=== PATIENT | male | born 1955 | race Caucasian/White ===

== ENCOUNTER 2016-07-27 14:14 | Outpatient (CLI) | payer BC | END 2016-07-27 14:15 | disposition home or self-care (01) | DX: I35.0 Nonrheumatic aortic (valve) stenosis (principal); I10 Essential (primary) hypertension ==

== ENCOUNTER 2017-10-09 09:14 | Outpatient (CLI) | payer BC ==
[2017-10-09 17:56] LABS: BILIRUBIN,URINE NEGATIVE (NEGATIVE); GLUCOSE, URINE (UA) NEGATIVE (NEGATIVE); KETONES,URINE (UA) NEGATIVE (NEGATIVE); LEUKOCYTE ESTERASE, URINE NEGATIVE (NEGATIVE); NITRITE,URINE NEGATIVE (NEGATIVE); OCCULT BLOOD,URINE NEGATIVE (NEGATIVE); PH,URINE 5.5 PH (5.0-7.5); PROTEIN,URINE NEGATIVE (NEGATIVE); UROBILINOGEN,URINE 0.2 (NORMAL) E.U./dL (NORMAL)
[2017-10-09 17:57] LABS: CLARITY,URINE CLEAR (CLEAR)
[2017-10-09 18:10] LABS: BASOPHILS # (AUTO) 0.2 10^3/uL (0.0-0.1); BASOPHILS % (AUTO) 2.2 %; EOSINOPHILS # (AUTO) 0.4 10^3/uL (0.0-0.7); EOSINOPHILS % (AUTO) 4.8 %; HGB - HEMOGLOBIN 15.3 g/dL (14.0-18.0); LYMPHOCYTES # (AUTO) 1.4 10^3/uL (1.5-3.5); LYMPHOCYTES % (AUTO) 18.4 %; MEAN CORPUSCULAR HEMOGLOBIN 29.5 pg (27.0-31.0); MEAN CORPUSCULAR HGB CONC 33.5 g/dL (32.0-36.0); MEAN CORPUSCULAR VOLUME 88.1 fL (80.0-94.0); MEAN PLATELET VOLUME 7.4 fL (7.4-11.4); MONOCYTES # (AUTO) 0.5 10^3/uL (0.0-1.0); MONOCYTES % (AUTO) 6.1 %; NEUTROPHILS # (AUTO) 5.2 10^3/uL (1.5-6.6); NEUTROPHILS % (AUTO) 68.5 %; PLT - PLATELET COUNT 246 10^3/uL (130-450); RED BLOOD COUNT 5.19 10^6/uL (4.70-6.10); RED CELL DISTRIBUTION WIDTH 13.6 % (12.0-15.0); WHITE BLOOD COUNT 7.6 x10^3/uL (4.8-10.8)
[2017-10-09 18:29] LABS: ALBUMIN 3.9 g/dL (3.2-5.5); ALBUMIN/GLOBULIN RATIO 1.6 (1.0-2.2); ALKALINE PHOSPHATASE 64 IU/L (42-121); ALT ALANINE AMINOTRANSFERASE 25 IU/L (10-60); AST ASPARTATE AMINOTRANSFERASE 22 IU/L (10-42); BILIRUBIN,TOTAL 0.7 mg/dL (0.2-1.0); BUN - BLOOD UREA NITROGEN 17 mg/dL (6-20); CALCIUM 8.9 mg/dL (8.5-10.3); CARBON DIOXIDE - CO2 28 mmol/L (21-32); CHLORIDE 105 mmol/L (101-111); CHOLESTEROL 152 mg/dL; CREATININE 0.9 mg/dL (0.6-1.2); GFR - MDRD 85 (>89); GLUCOSE 111 mg/dL (70-100); HDL CHOLESTEROL 38 mg/dL; LDL CHOLESTEROL,CALCULATED 91 mg/dL; LDL/HDL RATIO 2.4 (<3.6); SODIUM 138 mmol/L (135-145); TOTAL PROTEIN 6.3 g/dL (6.7-8.2); VLDL CHOLESTEROL 23 mg/dL
[2017-10-09 18:33] LABS: HB2 TOTAL 17.4 g/dL; HEMOGLOBIN A1C 0.72 g/dL; HEMOGLOBIN A1C % 5.9 % (4.6-6.2)
[2017-10-09 18:35] LABS: BACTERIA,URINE None Seen /HPF (None Seen); RBC,URINE 3 /HPF (0-5); SQUAMOUS EPITHELIAL CELL,UR RARE Squamous (<= Few)
== END 2017-10-09 09:15 | disposition home or self-care (01) ==
LOC: LAB.F 09:14
PROVIDERS: ATTEND Family Medicine
DX: I25.10 Atherosclerotic heart disease of native coronary artery without angina pectoris (principal); I35.0 Nonrheumatic aortic (valve) stenosis; R73.9 Hyperglycemia, unspecified; I10 Essential (primary) hypertension; E78.5 Hyperlipidemia, unspecified; Z12.5 Encounter for screening for malignant neoplasm of prostate
CPT/HCPCS: 36415; 80053; 80061; 81001; 83036; 83721; 84153; 85025

== ENCOUNTER 2017-10-13 16:54 | Emergency (ER) | payer BC ==
[2017-10-13] MEDS ORDERED: BUPIVACAINE 0.5% PF 30 ML VIAL SUBQ STA (17:00)
[2017-10-13] MEDS ORDERED: TETANUS/DIPHTHERIA/PERTUSSIS 0.5 ML SYRINGE IM ONE (17:00)
[2017-10-13 17:01] VITALS: BP 148/75
[2017-10-13] MEDS ORDERED: BUPIVACAINE 0.25% PF 30 ML VIAL SUBQ STA (17:04)
--- NOTE | 2017-10-13 17:04 | ED Physician Documentation ---
PD HPI UPPER EXT INJURY - Stated complaint Stated Complaint: RT INDEX SMASHED - Chief complaint Chief Complaint: Wound - History obtained from History obtained from: Patient - History of Present Illness Location: Right (Left-handed gentleman with unknown tetanus caught his finger under a heavy piece of metal while working at home just prior to arrival and injured the right index finger with moderate to severe pain. No other injuries. ) Review of Systems Ten Systems: 10 systems reviewed and negative Constitutional: reports: Reviewed and negative Cardiac: reports: Reviewed and negative Respiratory: reports: Reviewed and negative PD PAST MEDICAL HISTORY - Past Medical History Past Medical History: Yes Cardiovascular: Valve disorder (Valve replacement) - Present Medications Home Medications: Ambulatory Orders Medication Instructions Recorded Confirmed Amlodipine/Valsartan/Hcthiazid 1 tab PO DAILY 10/13/17 10/13/17 [Eodgv-Qpgmu-Vlej 5-160-25 mg] Aspirin 1 tab PO DAILY 10/13/17 10/13/17 Atorvastatin [Lipitor] 1 tab PO DAILY 10/13/17 10/13/17 HYDROcod/ACETAM 5/325 [[place] 5/325] 1 tab PO Q6HR PRN 10/13/17 10/13/17 - Allergies Allergies/Adverse Reactions: Allergies Allergy/AdvReac Type Severity Reaction Status Date / Time No Known Drug Allergies Allergy Verified 10/13/17 17:01 - Social History Does the pt smoke?: Yes Does the pt drink ETOH?: No Does the pt have substance abuse?: No - Family History Family history: reports: Non contributory PD ED PE NORMAL - Vitals Vital signs reviewed: Yes - General General: Alert and oriented X 3, No acute distress - HEENT HEENT: PERRL, EOMI - Neck Neck: Supple, no meningeal sign, No bony TTP - Cardiac Cardiac: RRR, No murmur - Respiratory Respiratory: No respiratory distress, Clear bilaterally - Abdomen Abdomen: Normal bowel sounds, Soft, Non tender - Back Back: No CVA TTP, No spinal TTP - Derm Derm: Normal color, Warm and dry - Extremities Extremities: Other (Big injury on the radial side of the R 2nd finger at the level of the mid phalanx. Good sensation at the tip. The injury itself is kind of stellate deep laceration, potentially with some tissue loss.) - Neuro Neuro: Alert and oriented X 3, Normal speech - Psych Psych: Normal mood, Normal affect Results - Vitals Vitals: Vital Signs - 24 hr 10/13/17 16:57 Temperature 36 C L Heart Rate 74 Respiratory 20 Rate Blood Pressure 148/75 H O2 Saturation 97 Oxygen O2 Source Room air - Rads (name of study) R 2nd finger XR Radiology: EMP read contemporaneously (IMPRESSION: Severely comminution, displaced and angulated fracture of the index finger middle phalanx, with intra- articular involvement at the DIP. Small fracture of the base of the distal phalanx is not excluded. There is associated soft tissue deformity and defect compatible with an open fracture.) Procedures - Regional nerve block Nerve block site: Digital - note digit(s) (2nd right) Nerve block anesthesia: Marcaine 0.5% Nerve block aftercare: Patient tolerated well PD MEDICAL DECISION MAKING - ED course ED course: I spoke with the on-call surgeon, Dr. Gonzalez, who recommended consulting a hand surgeon after checking his tendon function. Noting that I did not check his tendon function on initial arrival because he was not numbed up yet. On reexamination after a digital block with 0.5% bupivacaine he did have evidence of both flexor and Extensor tendon injuries. Case was discussed by phone with Dr. Roel Stanley, hand surgeon in [place] he will see him in the ER and recommends an ER to ER transfer and will likely take him to the OR. He has been n.p.o. for solids since 8 AM and liquid since 11 AM. He was accepted by Dr. Pompa in the ER there, cobras were completed. Patient wants to drive to his house and then have his taken down [place] because his dogs in the car. We will give him 2 g of Ancef IV before that and he understands he needs to stay n.p.o. Departure - Departure Disposition: 02 Transfer Acute Care Hosp Clinical Impression: Laceration Open fracture of phalanx of digit of hand Qualifiers: Encounter type: initial encounter Qualified Code(s): S62.609B - Fracture of unspecified phalanx of unspecified finger, initial encounter for open fracture Injury of flexor tendon of hand Qualifiers: Encounter type: initial encounter Laterality: right Qualified Code(s): S66.801A - Unspecified injury of other specified muscles, fascia and tendons at wrist and hand level, right hand, initial encounter Condition: Stable
[2017-10-13] MEDS ORDERED: ceFAZolin 1 GM VIAL IVP STA (17:25)
--- NOTE | 2017-10-13 17:48 | XRAY Report ---
EXAM: RIGHT SECOND DIGIT RADIOGRAPHY EXAM DATE: 10/13/2017 05:22 PM. CLINICAL HISTORY: Index inj. crush injury today. COMPARISON: None. TECHNIQUE: 3 views. FINDINGS: Bones: Comminuted, displaced and angulated fracture of the index finger middle phalanx extending from the proximal metaphyseal region with severe comminution of the mid to distal aspect, with intra-manny cular involvement. The distal phalanx proximally positioned. Fracture involvement of the base of the distal phalanx is not definitely excluded. Joints: Extensive fracture involvement of the articular aspect of the distal portion middle phalanx w ith angulated/displaced distal phalanx. Soft Tissues: There is associated soft tissue swelling, distortion and defect compatible with an open fracture. IMPRESSION: Severely comminution, displaced and angulated fracture of the index finger middle phalanx , with intra-articular involvement at the DIP. Small fracture of the base of the distal phalanx is no t excluded. There is associated soft tissue deformity and defect compatible with an open fracture. [facility] Referring Provider Line: [phone] SITE ID: [id number]
== END 2017-10-13 18:03 | disposition short-term general hospital (02) ==
LOC: ED 16:54
DX: S62.620B Displaced fracture of middle phalanx of right index finger, initial encounter for open fracture (principal); S56.40 Unspecified injury of extensor muscle, fascia and tendon of other and unspecified finger at forearm level; S56.101A Unspecified injury of flexor muscle, fascia and tendon of right index finger at forearm level, initial encounter; W23.0XXA Caught, crushed, jammed, or pinched between moving objects, initial encounter; Y93.89 Activity, other specified; Y92.009 Unspecified place in unspecified non-institutional (private) residence as the place of occurrence of the external cause; F17.200 Nicotine dependence, unspecified, uncomplicated
CPT/HCPCS: 73140; 90471; 96374; 99283

== ENCOUNTER 2018-09-16 07:39 | Outpatient (CLI) | payer BC ==
[2018-09-16 11:37] LABS: CHOL/HDL RATIO 3.4 (<5.0); CHOLESTEROL 126 mg/dL; HDL CHOLESTEROL 37 mg/dL; LDL CHOLESTEROL,CALCULATED 70 mg/dL; LDL/HDL RATIO 1.9 (<3.6); VLDL CHOLESTEROL 19 mg/dL
[2018-09-16 11:40] LABS: HB2 TOTAL 16.9 g/dL; HEMOGLOBIN A1C 0.68 g/dL; HEMOGLOBIN A1C % 5.8 % (4.6-6.2)
== END 2018-09-16 07:40 | disposition home or self-care (01) ==
LOC: LAB.F 07:39
PROVIDERS: ATTEND Internal Medicine Cardiovascular Disease
DX: E78.5 Hyperlipidemia, unspecified (principal); R73.9 Hyperglycemia, unspecified
CPT/HCPCS: 36415; 80061; 83036; 83721

== ENCOUNTER 2019-12-04 06:58 | Outpatient (CLI) | payer BC ==
[2019-12-04 16:35] LABS: CHOL/HDL RATIO 2.9 (<5.0); CHOLESTEROL 122 mg/dL; HDL CHOLESTEROL 42 mg/dL; LDL CHOLESTEROL,CALCULATED 66 mg/dL; LDL/HDL RATIO 1.6 (<3.6); VLDL CHOLESTEROL 14 mg/dL
== END 2019-12-04 06:59 | disposition home or self-care (01) ==
LOC: LAB.S 06:58
PROVIDERS: ATTEND Internal Medicine Cardiovascular Disease
DX: E78.5 Hyperlipidemia, unspecified (principal)
CPT/HCPCS: 36415; 80061; 83721

== ENCOUNTER 2020-09-14 06:51 | Outpatient (CLI) | payer BC ==
[2020-09-14 07:59] LABS: CHOL/HDL RATIO 2.8 (<5.0); CHOLESTEROL 145 mg/dL; HDL CHOLESTEROL 52 mg/dL; LDL CHOLESTEROL,CALCULATED 73 mg/dL; LDL/HDL RATIO 1.4 (<3.6); TRIGLYCERIDES 99 mg/dL; VLDL CHOLESTEROL 20 mg/dL
[2020-09-14 09:01] LABS: ESTIMATED AVERAGE GLUCOSE 128 mg/dL (70-100); HEMOGLOBIN A1c% 6.1 % (4.27-6.07)
== END 2020-09-14 06:52 | disposition home or self-care (01) ==
LOC: LAB 06:51
PROVIDERS: ATTEND Internal Medicine Cardiovascular Disease
DX: E78.5 Hyperlipidemia, unspecified (principal); R73.9 Hyperglycemia, unspecified; I35.0 Nonrheumatic aortic (valve) stenosis
CPT/HCPCS: 36415; 80061; 83036; 83721

== ENCOUNTER 2021-02-26 20:48 | Observation (INO) | payer BC ==
--- NOTE | 2021-02-26 21:21 | ED Physician Documentation ---
History of Present Illness - Stated complaint Stated Complaint: THROWN OFF HORSE - Chief complaint Chief Complaint: Trauma Ch/Bk - History obtained from History obtained from: Patient - History of Present Illness Timing: Today - Additonal information Additional information: 65-year-old male was riding his horse today when he fell off of the horse onto his left side he has a bruise to the inside of his right thigh from the horn and he has a pain to his back from where he landed. He states that it feels like ribs are rubbing against each other. He did take some ibuprofen this evening after dinner without improvement in his pain. He had some nausea associated with this when it first happened and currently he has no abdominal complaints. He has had a bovine aortic valve replacement. Review of Systems Constitutional: denies: Fever Eyes: denies: Decreased vision Ears: denies: Ear pain Nose: denies: Congestion Throat: denies: Sore throat Cardiac: reports: Chest pain / pressure. denies: Palpitations, Pedal edema, Calf pain Respiratory: denies: Dyspnea, Cough, Wheezing GI: reports: Nausea. denies: Abdominal Pain, Vomiting, Constipation, Diarrhea : denies: Dysuria, Frequency Skin: denies: Rash Musculoskeletal: reports: Back pain. denies: Neck pain, Extremity pain PD PAST MEDICAL HISTORY - Past Medical History Cardiovascular: Valve disorder (Valve replacement) HEENT: None - Present Medications Home Medications: Ambulatory Orders Medication Instructions Recorded Confirmed Amlodipine/Valsartan/Hcthiazid 1 tab PO DAILY 10/13/17 02/26/21 [Asqzn-Igacg-Cxuy 5-160-25 mg] Atorvastatin [Lipitor] 1 tab PO DAILY 10/13/17 02/26/21 HYDROcod/ACETAM 5/325 [[place] 5/325] 1 tab PO Q6HR PRN 10/13/17 02/26/21 - Allergies Allergies/Adverse Reactions: Allergies Allergy/AdvReac Type Severity Reaction Status Date / Time No Known Drug Allergies Allergy Verified 02/26/21 20:51 - Social History Does the pt smoke?: Yes Smoking Status: Current every day smoker Does the pt drink ETOH?: No Does the pt have substance abuse?: No - Immunizations Immunizations: TDAP >10years/unknown - POLST Patient has POLST: No PD ED PE NORMAL - Vitals Vital signs reviewed: Yes (Hypertensive) - General General: Alert and oriented X 3, Well developed/nourished, Other (Patient is sitting leaning forward and appears to be in pain) - HEENT HEENT: Atraumatic, EOMI - Neck Neck: Supple, no meningeal sign, No bony TTP - Cardiac Cardiac: RRR, No murmur - Respiratory Respiratory: No respiratory distress, Clear bilaterally, Other (There is symmetric air movement and there is pain to the posterior aspect of the chest wall on the left side to the lower 3 ribs.) - Abdomen Abdomen: Normal bowel sounds, Soft, Non tender, Non distended, No organomegaly, Other (Specifically no left upper quadrant tenderness to deep palpation.) - Back Back: No CVA TTP, No spinal TTP - Derm Derm: Normal color, No rash - Extremities Extremities: No deformity, No edema - Neuro Neuro: Alert and oriented X 3, 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 operator 2-12 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, No motor deficit, No sensory deficit, Normal speech Eye Opening: Spontaneous Motor: Obeys Commands Verbal: Oriented GCS Score: 15 - Psych Psych: Normal mood, Normal affect Results - Vitals Vitals: Vital Signs - 24 hr 02/26/21 20:51 Temperature 36.5 C Heart Rate 72 Respiratory 16 Rate Blood Pressure 150/80 H O2 Saturation 98 Oxygen O2 Source Room air - Labs Labs: Laboratory Tests 02/26/21 02/26/21 22:09 22:09 WBC 14.9 H RBC 5.18 Hgb 15.6 Hct 46.8 MCV 90.3 MCH 30.1 MCHC 33.3 RDW 12.9 Plt Count 218 MPV 8.5 Neut # (Auto) 10.9 H Lymph # (Auto) 2.5 [place] # (Auto) 1.2 H Eos # (Auto) 0.3 Baso # (Auto) 0.1 Absolute Nucleated RBC 0.00 Nucleated RBC % 0.0 Sodium 140 Potassium 4.2 Chloride 104 Carbon Dioxide 25 Anion Gap 11.0 BUN 24 H Creatinine 1.0 Estimated GFR (MDRD) 75 L Glucose 112 H Calcium 9.4 Total Bilirubin 1.1 H AST 26 ALT 23 Alkaline Phosphatase 74 Total Protein 7.1 Albumin 4.5 Globulin 2.6 Albumin/Globulin Ratio 1.7 Lipase 24 - Rads (name of study) ribs with PA chest Radiology: Prelim report reviewed (Impression: Acute posterior 12th and probable left rib fractures.), EMP read indepedently (On my read there are 10th 11th and 12th rib fractures. Posteriorly on the left), See rad report PD MEDICAL DECISION MAKING - ED course Complexity details: reviewed results, re-evaluated patient, considered differential, d/w patient ED course: 65-year-old male riding his horse earlier today was bucked off of his horse, landed on his left side, has 3 lower rib fractures posteriorly and has inadequate pain relief with use of Toradol. He has a bruise to the inside of his right thigh from the saddle horn as well. An IV is begun the patient is administered intravenous Dilaudid. Dr. Yanez is consulted in the case and will admit the patient in the hospital for care of multiple rib fractures.The patient is fully vaccinated with Pfizer. Departure - Departure Disposition: 65 [facility] DC/[facility] Clinical Impression: Multiple rib fractures Qualifiers: Encounter type: initial encounter Fracture type: closed Laterality: left Qualified Code(s): S22.42XA - Multiple fractures of ribs, left side, initial encounter for closed fracture Condition: Stable
[2021-02-26] MEDS ORDERED: KETOROLAC 60 MG/2 ML VIAL IM STA (21:30)
[2021-02-26] MEDS ORDERED: ONDANSETRON 4 MG/2 ML VIAL IVP STA (21:57)
[2021-02-26] MEDS ORDERED: HYDROmorphone 1 MG/ML CARPUJECT IVP STA (21:57)
[2021-02-26] MEDS ORDERED: ACETAMINOPHEN 325 MG TABLET PO PRN (22:16)
[2021-02-26] MEDS ORDERED: oxyCODONE 5 MG TABLET PO PRN (22:16)
[2021-02-26] MEDS ORDERED: ONDANSETRON ODT 4 MG TABLET TL PRN (22:16)
[2021-02-26] MEDS ORDERED: ZOLPIDEM 5 MG TABLET PO PRN (22:16)
[2021-02-26] MEDS ORDERED: SODIUM CHLORIDE FLUSH 0.9% 10 ML SYRINGE IVP PRN (22:16)
[2021-02-26 22:18] LABS: BASOPHILS # (AUTO) 0.1 10^3/uL (0.0-0.1); BASOPHILS % (AUTO) 0.3 %; EOSINOPHILS # (AUTO) 0.3 10^3/uL (0.0-0.7); EOSINOPHILS % (AUTO) 1.8 %; HCT - HEMATOCRIT 46.8 % (42.0-52.0); HGB - HEMOGLOBIN 15.6 g/dL (14.0-18.0); LYMPHOCYTES # (AUTO) 2.5 10^3/uL (1.5-3.5); LYMPHOCYTES % (AUTO) 16.5 %; MEAN CORPUSCULAR HEMOGLOBIN 30.1 pg (27.0-31.0); MEAN CORPUSCULAR HGB CONC 33.3 g/dL (32.0-36.0); MEAN CORPUSCULAR VOLUME 90.3 fL (80.0-94.0); MEAN PLATELET VOLUME 8.5 fL (7.4-11.4); MONOCYTES # (AUTO) 1.2 10^3/uL (0.0-1.0); MONOCYTES % (AUTO) 7.8 %; NEUTROPHILS # (AUTO) 10.9 10^3/uL (1.5-6.6); NEUTROPHILS % (AUTO) 73.2 %; PLT - PLATELET COUNT 218 10^3/uL (130-450); RED BLOOD COUNT 5.18 10^6/uL (4.70-6.10); RED CELL DISTRIBUTION WIDTH 12.9 % (12.0-15.0); WHITE BLOOD COUNT 14.9 x10^3/uL (4.8-10.8)
[2021-02-26 22:28] LABS: ALBUMIN 4.5 g/dL (3.2-5.5); ALBUMIN/GLOBULIN RATIO 1.7 (1.0-2.2); BILIRUBIN,TOTAL 1.1 mg/dL (0.2-1.0); CALCIUM 9.4 mg/dL (8.5-10.3); POTASSIUM 4.2 mmol/L (3.5-5.0); TOTAL PROTEIN 7.1 g/dL (6.7-8.2)
[2021-02-26 23:38] LABS: B. PARAPERTUSSIS- RESP PCR PAN NOT DETECTED; B. PERTUSSIS- RESP PCR PANEL NOT DETECTED; C. PNEUMONIAE- RESP PCR PANEL NOT DETECTED; CORONAVIRUS 229E-RESP PCR NOT DETECTED; CORONAVIRUS HKU1-RESP PCR NOT DETECTED; CORONAVIRUS NL63-RESP PCR NOT DETECTED; CORONAVIRUS OC43-RESP PCR NOT DETECTED; HUMAN METAPNEUMOVIRUS NOT DETECTED; INFLUENZA A- RESP PCR PANEL NOT DETECTED; INFLUENZA B - RESP PCR PANEL NOT DETECTED; M. PNEUMONIAE- RESP PCR PANEL NOT DETECTED; PARAINFLUENZA VIRUS 1 NOT DETECTED; PARAINFLUENZA VIRUS 2 NOT DETECTED; PARAINFLUENZA VIRUS 3 NOT DETECTED; PARAINFLUENZA VIRUS 4 NOT DETECTED; RHINOVIRUS/ENTEROVIRUS NOT DETECTED; RSV- RESP PCR PANEL NOT DETECTED; SARS-CoV-2 -RESP PCR PANEL NOT DETECTED
[2021-02-27] MEDS: oxyCODONE 5 MG TABLET PO PRN ×2 (00:20→11:00)
[2021-02-27] MEDS: NS W/20 MEQ KCL 1,000 ML IV SCH ×2 (00:21→09:10)
[2021-02-27] MEDS: KETOROLAC 15 MG/ML VIAL IVP SCH ×3 (00:21→12:38)
[2021-02-27] MEDS: SODIUM CHLORIDE FLUSH 0.9% 10 ML SYRINGE IVP SCH ×2 (00:21→09:17)
[2021-02-27] MEDS: HYDROmorphone 0.5 MG/0.5 ML SYRINGE IVP PRN ×3 (01:15→09:09)
--- NOTE | 2021-02-27 08:24 | XRAY Report ---
PROCEDURE: Ribs w/PA Chest LT INDICATIONS: fall from horse posterior rib pain TECHNIQUE: 3 views of the left ribs were acquired, along with a single view chest. COMPARISON: None FINDINGS: Surgical changes and devices: Sternotomy wires with aortic valve replacement can be seen. Bones and chest wall: A marker is placed upon the area of pain. There are mildly displaced 11th and 12th rib fractures seen at this site. No fractures or dislocations are seen elsewhere. No suspicious bony lesions. Age-appropriate degenerative changes are seen. The overlying soft tissues appear unre markable. Lungs and pleura: No pleural effusions or pneumothorax. Lungs appear clear. Mediastinum: Mediastinal contours appear normal. Heart size is normal. IMPRESSION: Mildly displaced left posterior 11th and 12th rib fractures can be seen, which appear acute. No associated pneumothorax. Postoperative and degenerative changes are seen. Note: No significant discrepancy from the preliminary report. Reviewed by: Evan Kee MD on 02/27/2021 7:23 AM [facility] Approved by: Evan Kee MD on 02/27/2021 7:23 AM [facility] Station ID: [id number]
[2021-02-27] MEDS ORDERED: ATORVASTATIN 10 MG TABLET PO SCH ×2 (09:00→21:00)
[2021-02-27] MEDS ORDERED: PANTOPRAZOLE 40 MG TABLET PO SCH (09:00)
[2021-02-27] MEDS ORDERED: amLODIPine 5 MG TABLET PO SCH ×2 (09:00→21:00)
[2021-02-27] MEDS ORDERED: hydroCHLOROthiazide 25 MG TABLET PO SCH (09:00)
--- NOTE | 2021-02-27 09:28 | HISTORY & PHYSICAL EXAMINATION ---
Chief Complaint - Chief Complaint Chief Complaint: Chest pain History of Present Illness - Admitted From Admitted From:: ED - History Obtained From Records Reviewed: yes History obtained from: pt Exam Limitations: none - History of Present Illness HPI Comment/Other: Fall from horse yesterday afternoon. Went to ED many hours later with uncontrollable chest wall pain. Has bruise on thigh. Denies other injuries. History - Past Medical History Cardiovascular: reports: Valve disorder Respiratory: reports: None Neuro: reports: None Endocrine/Autoimmune: reports: None GI: reports: None : reports: None HEENT: reports: None Psych: reports: None Musculoskeletal: reports: Other Derm: reports: None MRSA Hx?: No Other Past Medical History: patient had a value replacement, chronic right shoulder pain - Past Surgical History Cardiovascular: reports: Valve replacement - POLST Patient has POLST: No Meds/Allgy - Home Medications Home Medications: Ambulatory Orders Medication Instructions Recorded Confirmed Amlodipine Besylate [Norvasc] 10 mg PO DAILY 02/27/21 02/27/21 Atorvastatin Calcium [Lipitor] 80 mg PO QPM 02/27/21 02/27/21 Ezetimibe [Zetia] 10 mg PO QPM 02/27/21 02/27/21 HYDROcodone/ACET 7.5/325 [[place] 1 each PO BID PRN 02/27/21 02/27/21 7.5/325] Metoprolol Succinate [Toprol Xl] 50 mg PO DAILY 02/27/21 02/27/21 Oxycodone HCl [Oxycontin] 15 mg PO BID 02/27/21 02/27/21 - Allergies Allergies/Adverse Reactions: Allergies Allergy/AdvReac Type Severity Reaction Status Date / Time No Known Drug Allergies Allergy Verified 02/26/21 20:51 Review of Systems - Other Findings Other Findings: 10 pt ros as above otherwise unremarkable Exam - Vital Signs Reviewed Vital Signs: Yes Vital Signs: Vital Signs x48h Temp Pulse Resp BP Pulse Ox 02/27/21 07:36 36.7 C 55 L 18 127/71 97 02/27/21 06:13 36.5 C 55 L 18 146/71 H 99 - Physical Exam General Appearance: positive: Alert, Mild distress (with coughing deep breathing) Eyes Bilateral: positive: PERRL, EOMI ENT: positive: No signs of dehydration Neck: positive: No JVD Respiratory: positive: No respiratory distress Cardiovascular: positive: Regular rate & rhythm Abdomen: positive: Non-tender, No distention Skin: positive: Other (ecchymosis right anterior thigh) Neurologic/Psychiatric: positive: Oriented x3 Conclusion/Plan - Problem List (1) Multiple rib fractures Conclusion/Plan: Home when pain manageable on oral meds alone. He is hoping to be able to go home later today. Qualifiers: Encounter type: initial encounter Fracture type: closed Laterality: left Qualified Code(s): S22.42XA - Multiple fractures of ribs, left side, initial encounter for closed fracture - Lab Results Fish Bones: 02/26/21 22:09 02/26/21 22:09
--- NOTE | 2021-02-27 10:30 | PHARMACY PROGRESS NOTE ---
- Best Possible Medication History Admit Date and Time: 02/26/215 Processed by: Pharmacy Medication History completed: Yes Patient Interview: Completed Secondary Source(s): Pharmacy records, Insurance records As the person ultimately responsible for medication therapy, providers are able to order a medication from an existing home medication list in [facility] via the "Reconcile Routine" prior to Confirmation of that medication by product support representative. Such practice is discouraged except when the physician, in their clinical judgment, deems that a medical need exists for a medication without regard to previous use.
[2021-02-27 11:31] VITALS: BP 122/61
--- NOTE | 2021-02-27 11:39 | Discharge Plan ---
Discharge Plan Problem Reviewed?: Yes Disposition: Home, Self Care Condition: Good Prescriptions: oxyCODONE/ACET 5/325 [Percocet 5 mg/325 mg] 1 each PO Q4-6H PRN #40 tablet PRN Reason: Pain Diet: Regular Activity Restrictions: No Restrictions Shower Restrictions: No Driving Restrictions: Yes (not while taking additional pain pills) Plan of Treatment: pain management Additional Instructions or Follow Up instructions: follow up with the surgery office as needed [phone] No Smoking: If you smoke, Please STOP! Call for help. Follow-up with: MITUL HOPPER MD [Primary Care Provider] -
--- NOTE | 2021-02-27 11:41 | DISCHARGE SUMMARY ---
"Discharge Summary Admit Date: 02/26/21 Discharge Date: 02/27/21 Discharging Provider: haylie mason md Code Status: Attempt Resuscitation - DIAGNOSES Admission Diagnoses: rib fractures and poorly controlled pain Discharge Diagnoses with Status of Each Condition: Home in good condition. Pain improved - HPI History of Present Illness: Fall from horse suffering left posterior rib fractures. Admitted overnight for pain control. - CONSULTS | PROCEDURES Procedures: Pain management and pulmonary toilet - HOSPITAL COURSE Hospital Course: Improved pain and ability to take breaths. - ALLERGIES Allergies/Adverse Reactions: Allergies Allergy/AdvReac Type Severity Reaction Status Date / Time No Known Drug Allergies Allergy Verified 02/26/21 20:51 - MEDICATIONS Home Medications: Ambulatory Orders Medication Instructions Recorded Confirmed Amlodipine Besylate [Norvasc] 10 mg PO DAILY 02/27/21 02/27/21 Atorvastatin Calcium [Lipitor] 80 mg PO QPM 02/27/21 02/27/21 Ezetimibe [Zetia] 10 mg PO QPM 02/27/21 02/27/21 HYDROcodone/ACET 7.5/325 [[place] 1 each PO BID PRN 02/27/21 02/27/21 7.5/325] Oxycodone HCl [Oxycontin] 15 mg PO BID 02/27/21 02/27/21 oxyCODONE/ACET 5/325 [Percocet 5 1 each PO Q4-6H PRN #40 tablet 02/27/21 mg/325 mg] - PHYSICAL EXAM AT DISCHARGE General Appearance: positive: No acute distress, Alert Eyes Bilateral: positive: Normal inspection Respiratory: positive: No respiratory distress Neurologic/Psychiatric: positive: Oriented x3 - LABS Result Diagrams: 02/26/21 22:09 02/26/21 22:09 - QUALITY (Female Hip Fx Only) Was patient sent home on osteoporosis medication?: No - FOLLOW UP Follow Up: surgery office as needed [phone]"
== END 2021-02-27 12:42 | disposition home or self-care (01) ==
LOC: ED 20:48 → MS2 22:16
PROVIDERS: ADMIT Surgery; ATTEND Surgery
DX: G89.11 Acute pain due to trauma (principal); S22.42XA Multiple fractures of ribs, left side, initial encounter for closed fracture; V80.010A Animal-rider injured by fall from or being thrown from horse in noncollision accident, initial encounter; Z95.2 Presence of prosthetic heart valve; F17.200 Nicotine dependence, unspecified, uncomplicated; Z20.822 Contact with and (suspected) exposure to COVID-19; S70.11XA Contusion of right thigh, initial encounter; M25.511 Pain in right shoulder
CPT/HCPCS: 0202U; 36415; 71101; 80053; 83690; 85025; 96361; 96372; 96374; 96375; 96376; 99284; 99285; A9270; G0378; J1170

== ENCOUNTER 2022-11-09 14:18 | Emergency (ER) | payer BC, MEDICARE ==
[2022-11-09 14:28] VITALS: BP 124/75
[2022-11-09] MEDS ORDERED: lidocaine 1% 20 ML MDV SUBQ ONE (14:32)
[2022-11-09] MEDS ORDERED: BACITRACIN ZINC OINT 1 PACKET TOP STA (15:17)
--- NOTE | 2022-11-09 15:18 | ED Physician Documentation ---
PD HPI SKIN - Stated complaint Stated Complaint: LT ARM LAC - Chief complaint Chief Complaint: Laceration - History obtained from History obtained from: Patient - Additional information Additional information: The patient comes to the emergency department chief complaint of left forearm laceration. He states he was cutting down trees and was sliding along a tree trunk when his arm caught on a sharp remnant of a branch and it caught his skin and tore it open. Patient denies any other injuries or complaints. He thinks he is up-to-date on tetanus. PD PAST MEDICAL HISTORY - Past Medical History Cardiovascular: Valve disorder Respiratory: None Neuro: None Endocrine/Autoimmune: None GI: None : None HEENT: None Psych: None Musculoskeletal: Other Derm: None - Past Surgical History Past Surgical History: Yes Cardiovascular: Valve replacement - Present Medications Home Medications: Ambulatory Orders Medication Instructions Recorded Confirmed Amlodipine Besylate [Norvasc] 10 mg PO DAILY 02/27/21 02/27/21 Atorvastatin Calcium [Lipitor] 80 mg PO QPM 02/27/21 02/27/21 Ezetimibe [Zetia] 10 mg PO QPM 02/27/21 02/27/21 HYDROcodone/ACET 7.5/325 [[place] 1 each PO BID PRN 02/27/21 02/27/21 7.5/325] Oxycodone HCl [Oxycontin] 15 mg PO BID 02/27/21 02/27/21 oxyCODONE/ACET 5/325 [Percocet 5 1 each PO Q4-6H PRN #40 tablet 02/27/21 mg/325 mg] - Allergies Allergies/Adverse Reactions: Allergies Allergy/AdvReac Type Severity Reaction Status Date / Time No Known Drug Allergies Allergy Verified 02/26/21 20:51 - Social History Does the pt smoke?: Yes Smoking Status: Current some day smoker Does the pt drink ETOH?: No Does the pt have substance abuse?: No - Immunizations Immunizations: TDAP >10years/unknown - POLST Patient has POLST: No PD ED PE NORMAL - Vitals Vital signs reviewed: Yes - General General: Alert and oriented X 3, No acute distress - HEENT HEENT: Atraumatic, PERRL, EOMI, Moist mucous membranes - Neck Neck: Supple, no meningeal sign - Cardiac Cardiac: Strong equal pulses - Respiratory Respiratory: No respiratory distress - Derm Derm: Warm and dry, Other (Curved laceration approximately 5 cm length on the ulnar aspect of the patient's mid left forearm. Minimal particulate foreign material in wound. Bleeding controlled. Wound edges appear torn rather than cleanly lacerated. No involvement of tendon or muscular belly.) - Extremities Extremities: No deformity - Neuro Neuro: Alert and oriented X 3, No motor deficit, No sensory deficit - Psych Psych: Normal mood, Normal affect Results - Vitals Vitals: Oxygen O2 Source Room air Procedures - Laceration (location) L arm Length in cm: 5 Wound type: Curved, Into subcut fat, Contaminated (Mild amount of particulate, woody matter) Neurovascular status: Sensory intact, Motor intact, Vascular intact Anesthesia: Lidocaine 1% Wound preparation: Hibiclens, Irrigated copiously NS, Wound explored, To the base, FB identified (Particulate only), FB removed (By irrigation), debridement of wound edges (traumatic laceration/avulsion) Skin layer closure: Nylon, Interrupted, Size #-0 - enter number (4.0), Sutures - enter # (12) Other: Patient tolerated well, No complications, Neurovascular intact, Dressing applied, Tetanus UTD PD Medical Decision Making - ED course Complexity details: considered differential, d/w patient, d/w family ED course: The patient's laceration was repaired as above with 12 sutures. We have discussed wound care at home and the timeline for suture removal, which should be 10 days for this laceration. We have discussed symptoms of infection the usual indications for return. Departure - Departure Disposition: 01 Home, Self Care Clinical Impression: Laceration Condition: Stable Instructions: ED Laceration Ext Sutr Stap Tape Comments: Your laceration was repaired with 12 sutures today. Because Of the location, shape, and depth of the wound, the sutures should remain in place for 10 days. You should keep the wound generally clean and dry and may let water and soap run over it but please do not rub, scrub, or immerse the wound until the sutures are removed. You may follow-up with your primary doctor, walk-in clinic or the emergency department if you cannot be seen in either these venues, to have your sutures removed. In general, and the source of wound is healed well without infection, but if you begin to notice redness or swelling spreading progressively away from the wound, or if you develop a red streak going up your arm, please have the wound rechecked. Discharge Date/Time: 11/09/22 15:40
== END 2022-11-09 15:40 | disposition home or self-care (01) ==
LOC: ED 14:18
DX: S51.812A Laceration without foreign body of left forearm, initial encounter (principal); W26.8XXA Contact with other sharp object(s), not elsewhere classified, initial encounter; Y93.H2 Activity, gardening and landscaping; F17.200 Nicotine dependence, unspecified, uncomplicated
CPT/HCPCS: 12002; 99282